=== PATIENT | female | born 1940 | race Caucasian/White ===

== ENCOUNTER → 2025-01-13 09:42 | Outpatient (REF) | payer MEDICARE, SELFPAY | LOC: HWRAD 09:42 | PROVIDERS: ATTENDING PHYSICIAN Specialist | DX: M75.101 Unspecified rotator cuff tear or rupture of right shoulder, not specified as traumatic (principal); M12.811 Other specific arthropathies, not elsewhere classified, right shoulder | CPT/HCPCS: 73200 ==

== ENCOUNTER 2025-01-21 08:40 | Inpatient (IN) | payer MEDICARE, SELFPAY ==
--- NOTE | 2025-01-06 12:16 | CM ---
Addendum entered by Comfort Upton RN 01/07/25 16:42:
CM contacted Khadra at [facility] to confirm that patient is CARLINE or PSR.
Addendum entered by Comfort Upton RN 01/07/25 16:36:
Demographics: Plans to stay with daughter in [place], [place]
Living situation: home with daughter who will be available for assistance
Support Person Post Operatively: Daughter
History of
VN: No
SNF: No
Outpatient: Pending surgical clearance
Has patient purchased required equipment: sling, patient's daughter is getting a lift chair, and a bidet to help with toileting
Pharmacy: [facility]
Post Operative Discharge Plan: Home with daughter for up to two weeks.
Daughter stated that patient plans to stay over night. Further discharge planning will pend OT evaluation.
Original Note:
CM reviewed medical records. CM left message for [facility].
PLAN: Home , SDS
[2025-01-13 11:32] LABS: Hematocrit 35.6 % (37.0-47.0); Hemoglobin 12.0 g/dL (12.0-16.0); Mean Corp Hgb Conc. 33.7 g/dL (33.0-37.0); Mean Corpuscular Volume 92.0 fL (81.0-99.0); Platelet Count 235 10^3/uL (130-400); Red Cell Dist. Width 12.3 % (11.5-14.5)
[2025-01-13 12:50] LABS: ALT (SGPT) 19 U/L (0-35); AST (SGOT) 31 U/L (14-36); Albumin 4.3 g/dl (3.5-5.0); Alkaline Phosphatase 69 U/L (38-126); Blood Urea Nitrogen 30 mg/dl (7-17); Calcium 9.8 mg/dl (8.4-10.2); Carbon Dioxide 24 mmol/L (22-30); Chloride 103 mmol/L (98-107); Glucose 100 mg/dl (70-99); Potassium 4.6 mmol/L (3.5-5.1); Sodium 137 mmol/L (135-145); Total Protein 7.1 g/dl (6.3-8.2); eGFR 40.55
[2025-01-13 13:10] LABS: Glycohemoglobin (HgbA1c) 5.6 % (4.0-5.9)
[2025-01-13 13:53] VITALS: BMI 31.2
[2025-01-21] VITALS (13 sets, daily range): BP systolic 140–171; BP diastolic 52–75; PULSE 69–86; O2SAT 97; BMI 31.2
[2025-01-21] MEDS: NORMOSOL-R/PLASMALYTE-A 1000 IV ×2 (08:54→13:07)
[2025-01-21] MEDS: ULTRAM 50 MG PO (11:38)
--- NOTE | 2025-01-21 12:36 | PTCARENOTE ---
Pt arrived to [facility] s/p R reverse TSA. Right shoulder dressing with scant sanguineous drainage and sling. NWB to RUE. 97% on RA. Thigh high teds and foot pumps on pt. Pt DTV. Bed locked and in lowest position. Admission questions answered. Care
ongoing.
[2025-01-21] MEDS: ANCEF 5 IV ×2 (16:02→23:00)
--- NOTE | 2025-01-21 16:05 | CM ---
CM reviewed medical records. Plan for discharge to home with family.
PLAN: Home with daughter, outpatient out when surgically cleared.
[2025-01-21] MEDS: ASPIRIN 325 MG PO (18:07)
[2025-01-21] MEDS: ULTRAM 25 MG PO ×2 (18:08→21:00)
[2025-01-21] MEDS: SENOKOT 17.2 MG PO (20:00)
[2025-01-21] MEDS: DECADRON 4 MG IV (20:00)
[2025-01-21] MEDS: BACTROBAN 2% OINTMENT 1 APPLIC NASAL (20:00)
[2025-01-21] MEDS: COLACE 100 MG PO (20:03)
[2025-01-21] MEDS: NEURONTIN 300 MG PO (21:00)
[2025-01-22 03:18] VITALS: BP 147/61
[2025-01-22 08:20] VITALS: BP 132/55
[2025-01-22] MEDS: DECADRON 4 MG IV (09:21)
[2025-01-22] MEDS: COLACE 100 MG PO (09:24)
[2025-01-22] MEDS: ULTRAM 25 MG PO (09:24)
[2025-01-22] MEDS: SENOKOT 17.2 MG PO (09:25)
[2025-01-22] MEDS: BACTROBAN 2% OINTMENT 1 APPLIC NASAL (09:26)
[2025-01-22] MEDS: ASPIRIN 325 MG PO (09:26)
--- NOTE | 2025-01-22 09:55 | W.PN.ORTHO ---
Today's Communication / Plan
-
Sling right upper extremity
Nonweightbearing right upper extremity
Aspirin for DVT prophylaxis
Discharge to home today
Assessment
.
Distal Motor Intact: Yes
Dressing:
Clean, dry and intact.
Plan
.
Surgery / Date: 01/21 Danis
DVT Prophylaxis: Aspirin
Activity:
Out of bed.
PT/OT
Discharge Plan: Home
Subjective
.
.:
Patient resting comfortably.
Vital Signs and Labs
.
Vital Signs and Labs:
Lab Results
01/13/25 10:59
01/13/25 10:59
Temp Pulse Resp BP Pulse Ox
98.4 F 79 16 132/55 94
01/22/25 08:20 01/22/25 08:20 01/22/25 08:20 01/22/25 08:20 01/22/25 08:20
Non-invasive Hgb result: 15.2
[2025-01-22 09:57] VITALS: BP 132/55; PULSE 78; O2SAT 93
--- NOTE | 2025-01-22 09:58 | W.DS.TRANS ---
DC Summary - Drafter Topographical
-
Discharge Instructions:
Sleep Apnea Risk Low
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
TSA w/ Dr Moscoso 01/21/25
Diet Regular
Additional Diets Adequate hydration, minimize opioids, and wear
TEDs stockings to prevent low blood pressure/
dizziness.
Activity As tolerated
Additional Activity Non-weightbearing right upper extremity
Driving Restrictions Not until seen by your Dr
Bathing Restrictions OK to Shower
Wound Care Leave dressing on until seen by surgeon's office
for follow-up.
Instructions:
Stand-Alone Forms: Total Shoulder Replacement D/C
Changes to Home Medications: No
Discharge Medications:
DC Medications w/original date entered in [employer]
Prevagen 1 tab PO DAILY Supplement 01/13/25
aspirin 325 mg tablet (Natalie Aspirin) 650 mg PO SA Blood Clot Prevention/Tx 01/13/25
cholecalciferol (vitamin D3) 125 mcg (5,000 unit) tablet 125 mcg PO DAILY Supplement 01/13/25
cranberry 500 mg capsule 500 mg PO DAILY Supplement 01/13/25
gstcchws-bsmm-hyed 8 mg-folic 400 mcg-K 50 mcg-lutein 300 mcg tablet (Centrum Silver Women) 1 tab PO DAILY Supplement 01/13/25
mupirocin 2 % topical ointment 1 applic intranasal BID #1 tube 01/13/25
dexamethasone 4 mg tablet 4 mg PO BID Anti-inflammatory #5 tabs 01/18/25
famotidine 20 mg tablet (Pepcid) 20 mg PO HS #30 tabs 01/18/25
gabapentin 100 mg capsule 200 mg (2 x 100 mg) PO HS neuropathic pain/sleep #20 caps 01/18/25
ondansetron HCl 4 mg tablet 4 mg PO Q6H PRN nausea and vomiting #30 tabs 01/18/25
tramadol 50 mg tablet 50 - 100 mg (1 - 2 x 50 mg) PO Q6H PRN moderate-severe pain #30 tabs 01/18/25
Home Medication Changes
Pending Results: No
--- NOTE | 2025-01-22 12:42 | CM ---
Pt discharged prior to CM meeting with her
Unable to issue IMM
Per chart review, plan for home with outpt therapy
== END 2025-01-22 11:00 | disposition home or self-care (01) | DRG 483 ==
LOC: 2 SOUTH 08:40
PROVIDERS: ADMITTING PHYSICIAN Specialist; OTHER PHYSICIAN Physician Assistant
PROC: 0RRJ00Z Replacement of Right Shoulder Joint with Reverse Ball and Socket Synthetic Substitute, Open Approach (ICD-10-PCS; 2025-01-21)
DX: M75.101 Unspecified rotator cuff tear or rupture of right shoulder, not specified as traumatic (principal); M19.011 Primary osteoarthritis, right shoulder; M81.0 Age-related osteoporosis without current pathological fracture; N18.32 Chronic kidney disease, stage 3b; I12.9 Hypertensive chronic kidney disease with stage 1 through stage 4 chronic kidney disease, or unspecified chronic kidney disease; E78.00 Pure hypercholesterolemia, unspecified; Z86.711 Personal history of pulmonary embolism; Z87.11 Personal history of peptic ulcer disease; Z86.73 Personal history of transient ischemic attack (TIA), and cerebral infarction without residual deficits; Z68.31 Body mass index [BMI] 31.0-31.9, adult; E66.9 Obesity, unspecified; B02.9 Zoster without complications; H91.93 Unspecified hearing loss, bilateral; M54.30 Sciatica, unspecified side; E04.1 Nontoxic single thyroid nodule; Z87.440 Personal history of urinary (tract) infections; Z88.0 Allergy status to penicillin; Z98.41 Cataract extraction status, right eye; Z98.42 Cataract extraction status, left eye
CPT/HCPCS: 36415; 73020; 80053; 83036; 85027; 87070; 93005; 97110; 97166; 97535; C1713; C1776